=== PATIENT | male | born 1960 | race African-American/Black ===

== ENCOUNTER 2017-08-27 14:05 | Inpatient (IN) ==
[2017-08-27] MEDS ORDERED: GLUCAGON 1 MG VIAL IM PRN (21:07)
[2017-08-27] MEDS ORDERED: POTASSIUM CHLORIDE 20 MEQ TABLET PO PRN (21:07)
[2017-08-27] MEDS ORDERED: ONDANSETRON 4 MG/2 ML VIAL IV PRN (21:07)
[2017-08-27] MEDS ORDERED: MAGNESIUM SULF RIDER 2 GM in PREMIX 1 EACH IV PRN (21:07)
[2017-08-27] MEDS ORDERED: MAGNESIUM SULF RIDER 4 GM in PREMIX 1 EACH IV PRN (21:07)
[2017-08-27] MEDS: cefTRIAXone 1,000 MG in SYRINGE 1 EACH IV SCH (22:00)
[2017-08-27] MEDS: CARVEDILOL 3.125 MG TABLET PO SCH (22:00)
[2017-08-27] MEDS: INSULIN GLARGINE 100 UNIT/ML SUBCUT SCH (22:07)
[2017-08-27 22:23] LABS: Eosinophils # 0.1 10*3/uL (0.0-0.87); Eosinophils % 0.5 % (0.00-10.9); Hematocrit 25.1 VOL% (42.0-52.0); Hemoglobin 8.3 GM/DL (14.0-18.0); Lymphocytes % 9.5 % (21.2-54.2); Mean Corpuscular HGB Conc 33.1 GM/DL (32-36); Mean Corpuscular Hemoglobin 31 PG (27-34); Mean Corpuscular Volume 92.3 FL (87-102); Mean Platelet Volume 10.8 FL (9.6-12.0); Monocytes % 9.6 % (1.7-12.7); Neutrophils # 8.2 10*3/uL (1.4-7.4); Neutrophils % 79.4 % (38.7-73.9); Platelet Count 119 T/CUMM (130-400); Red Blood Count 2.72 MC/CUMM (3.8-5.5); Red Cell Distribution Width 15.4 % (9.3-17.3); White Blood Count 10.3 T/CUMM (4-12)
[2017-08-27 22:50] LABS: Albumin 3.4 G/DL (3.4-5.0); Bilirubin,Total 0.6 MG/DL (0.2-1.0); Calcium 8.2 MG/DL (8.5-10.1); Osmolality,Calculated 275.9 MOS/KG (273-304); Potassium 4.7 MMOL/L (3.5-5.1); Thyroid Stimulating Hormone 0.552 uIU/ml (0.358-3.74)
[2017-08-27 23:21] LABS: Folate 6.9 NG/ML (5.4-24.0); Vitamin B12 953 PG/ML (211-911)
[2017-08-27 23:29] LABS: Sedimentation Rate-Westergren 119 MM/HR (0-20)
[2017-08-28 00:11] LABS: Apearance,Urine CLOUDY (Clear); Bilirubin,Urine Negative (Negative); Blood, Urine Large mg/dL (Negative); Glucose,Urine (UA) Negative (Negative); Ketones,Urine Negative (Negative); Nitrite,Urine Negative (Negative); Protein,Urine 100 MG/DL; RBC,Urine 866 /HPF (0-4); Urine Color Amber (Yellow); Urine Specific Gravity 1.012 (1.001-1.035); Urine Urobilinogen < 2.0 EU/DL (0.2-1.0); WBC,Urine 58 /HPF (0-6)
[2017-08-28] MEDS: ENOXAPARIN 30 MG/0.3 ML SYRINGE SUBCUT SCH ×2 (00:24→22:28)
[2017-08-28 07:09] LABS: Risk Ratio 1.53; VLDL CHOLESTEROL 8.6 MG/DL
[2017-08-28] MEDS: INSULIN REGULAR 100 UNIT/ML SUBCUT SCH ×4 (08:33→22:26)
[2017-08-28] MEDS: PANTOPRAZOLE 40 MG TABLET PO SCH (08:36)
[2017-08-28] MEDS: FUROSEMIDE 40 MG/4 ML VIAL IV SCH ×2 (08:36→15:01)
[2017-08-28] MEDS: CARVEDILOL 3.125 MG TABLET PO SCH (08:37)
[2017-08-28] MEDS: ASPIRIN CHEW 81 MG TABLET PO SCH (08:37)
[2017-08-28] MEDS: ISOSORBIDE DINITRATE 20 MG TABLET PO SCH ×3 (08:37→22:26)
[2017-08-28] MEDS: metOLazone 2.5 MG TABLET PO SCH (08:37)
[2017-08-28] MEDS ORDERED: hydrALAZINE 25 MG TABLET PO SCH (09:00)
[2017-08-28 10:52] LABS: Basophils % 0.1 % (0.0-0.8); Eosinophils % 0.2 % (0.00-10.9); Hematocrit 24.6 VOL% (42.0-52.0); Hemoglobin 8.5 GM/DL (14.0-18.0); Immature Granulocytes % 0.5 %; Immature Granulocytes Absolute 0.06 #; Lymphocytes # 0.8 10*3/uL (1.4-4.0); Lymphocytes % 6.9 % (21.2-54.2); Mean Corpuscular HGB Conc 34.6 GM/DL (32-36); Mean Corpuscular Hemoglobin 31 PG (27-34); Mean Corpuscular Volume 88.8 FL (87-102); Mean Platelet Volume 10.8 FL (9.6-12.0); Monocytes % 8.3 % (1.7-12.7); Neutrophils # 9.7 10*3/uL (1.4-7.4); Platelet Count 127 T/CUMM (130-400); Red Blood Count 2.77 MC/CUMM (3.8-5.5); Red Cell Distribution Width 15.3 % (9.3-17.3); White Blood Count 11.5 T/CUMM (4-12)
[2017-08-28] MEDS: OSELTAMIVIR 30 MG CAPSULE PO SCH (10:59)
[2017-08-28] MEDS ORDERED: CARVEDILOL 3.125 MG TABLET PO ONE (11:15)
[2017-08-28 11:39] LABS: Calcium 8.2 MG/DL (8.5-10.1); Osmolality,Calculated 278.9 MOS/KG (273-304)
[2017-08-28 12:04] LABS: Bilirubin,Direct 0.29 MG/DL (0.0-0.20); Bilirubin,Indirect 0.3 MG/DL (0.0-1.0); Bilirubin,Total 0.6 MG/DL (0.2-1.0); Total Protein 8.3 G/DL (6.4-8.3)
[2017-08-28 12:06] LABS: Hemoglobin A1 (Alkaline) 68.5 % (96.5-98.5)
[2017-08-28 12:09] LABS: Hemoglobin S (Alkaline) 28.5 %
[2017-08-28 17:40] LABS: Apearance,Urine CLOUDY (Clear); Bilirubin,Urine Negative (Negative); Blood, Urine Large mg/dL (Negative); Glucose,Urine (UA) Negative (Negative); Ketones,Urine Negative (Negative); Mucus,Urine Occasional /LPF (Occasional); Nitrite,Urine Negative (Negative); Protein,Urine 100 MG/DL; RBC,Urine 594 /HPF (0-4); Urine Color Yellow (Yellow); Urine Specific Gravity 1.005 (1.001-1.035); Urine Urobilinogen < 2.0 EU/DL (0.2-1.0); WBC,Urine 39 /HPF (0-6)
[2017-08-28 22:11] LABS: Microalbum/Creat Ratio Random 493.7 RATIO (0-30)
[2017-08-28] MEDS: CARVEDILOL 6.25 MG TABLET PO SCH (22:26)
[2017-08-28] MEDS: INSULIN GLARGINE 100 UNIT/ML SUBCUT SCH (22:27)
[2017-08-28] MEDS: PRAVASTATIN 20 MG TABLET PO SCH (22:27)
[2017-08-28] MEDS: cefTRIAXone 1,000 MG in SYRINGE 1 EACH IV SCH (22:30)
[2017-08-29 06:35] LABS: Basophils % 0.2 % (0.0-0.8); Eosinophils # 0.1 10*3/uL (0.0-0.87); Eosinophils % 1.1 % (0.00-10.9); Hematocrit 24.5 VOL% (42.0-52.0); Hemoglobin 8.5 GM/DL (14.0-18.0); Immature Granulocytes % 0.6 %; Immature Granulocytes Absolute 0.06 #; Lymphocytes # 1.6 10*3/uL (1.4-4.0); Lymphocytes % 14.4 % (21.2-54.2); Mean Corpuscular HGB Conc 34.7 GM/DL (32-36); Mean Corpuscular Hemoglobin 31 PG (27-34); Mean Corpuscular Volume 87.8 FL (87-102); Mean Platelet Volume 10.9 FL (9.6-12.0); Monocytes # 1.2 10*3/uL (0.11-0.8); Monocytes % 10.7 % (1.7-12.7); Neutrophils # 7.8 10*3/uL (1.4-7.4); Platelet Count 132 T/CUMM (130-400); Red Blood Count 2.79 MC/CUMM (3.8-5.5); Red Cell Distribution Width 15.2 % (9.3-17.3); White Blood Count 10.7 T/CUMM (4-12)
[2017-08-29 07:05] LABS: Calcium 8.3 MG/DL (8.5-10.1); Osmolality,Calculated 284.7 MOS/KG (273-304); Potassium 4.6 MMOL/L (3.5-5.1)
[2017-08-29] MEDS: INSULIN REGULAR 100 UNIT/ML SUBCUT SCH ×4 (07:45→21:26)
[2017-08-29] MEDS: ASPIRIN CHEW 81 MG TABLET PO SCH (09:08)
[2017-08-29] MEDS: PANTOPRAZOLE 40 MG TABLET PO SCH (09:08)
[2017-08-29] MEDS: FUROSEMIDE 40 MG/4 ML VIAL IV SCH ×2 (09:08→15:39)
[2017-08-29] MEDS: OSELTAMIVIR 30 MG CAPSULE PO SCH (09:08)
[2017-08-29] MEDS: metOLazone 2.5 MG TABLET PO SCH (09:08)
[2017-08-29] MEDS: ISOSORBIDE DINITRATE 20 MG TABLET PO SCH ×3 (09:08→21:25)
[2017-08-29] MEDS: CARVEDILOL 6.25 MG TABLET PO SCH ×2 (09:08→21:26)
[2017-08-29] MEDS ORDERED: hydrALAZINE 25 MG TABLET ONE (20:44)
[2017-08-29] MEDS: PRAVASTATIN 20 MG TABLET PO SCH (21:26)
[2017-08-29] MEDS: INSULIN GLARGINE 100 UNIT/ML SUBCUT SCH (21:26)
[2017-08-29] MEDS: cefTRIAXone 1,000 MG in SYRINGE 1 EACH IV SCH (21:27)
[2017-08-29] MEDS: ENOXAPARIN 30 MG/0.3 ML SYRINGE SUBCUT SCH (21:32)
[2017-08-30 05:31] LABS: Basophils % 0.2 % (0.0-0.8); Eosinophils # 0.2 10*3/uL (0.0-0.87); Eosinophils % 2.5 % (0.00-10.9); Hematocrit 24.5 VOL% (42.0-52.0); Hemoglobin 8.1 GM/DL (14.0-18.0); Immature Granulocytes % 0.4 %; Immature Granulocytes Absolute 0.03 #; Lymphocytes # 1.8 10*3/uL (1.4-4.0); Lymphocytes % 21.4 % (21.2-54.2); Mean Corpuscular HGB Conc 33.1 GM/DL (32-36); Mean Corpuscular Hemoglobin 30 PG (27-34); Mean Corpuscular Volume 89.1 FL (87-102); Mean Platelet Volume 11.2 FL (9.6-12.0); Monocytes # 1.1 10*3/uL (0.11-0.8); Monocytes % 12.6 % (1.7-12.7); Neutrophils # 5.3 10*3/uL (1.4-7.4); Neutrophils % 62.9 % (38.7-73.9); Platelet Count 138 T/CUMM (130-400); Red Blood Count 2.75 MC/CUMM (3.8-5.5); Red Cell Distribution Width 15.2 % (9.3-17.3); White Blood Count 8.5 T/CUMM (4-12)
[2017-08-30 05:56] LABS: Calcium 7.8 MG/DL (8.5-10.1); Osmolality,Calculated 290.5 MOS/KG (273-304); Potassium 4.4 MMOL/L (3.5-5.1)
[2017-08-30] MEDS: metOLazone 2.5 MG TABLET PO SCH ×2 (08:13→08:55)
[2017-08-30] MEDS: PANTOPRAZOLE 40 MG TABLET PO SCH (08:14)
[2017-08-30] MEDS: CARVEDILOL 6.25 MG TABLET PO SCH ×2 (08:14→20:08)
[2017-08-30] MEDS: ASPIRIN CHEW 81 MG TABLET PO SCH (08:14)
[2017-08-30] MEDS: ISOSORBIDE DINITRATE 20 MG TABLET PO SCH ×3 (08:14→20:08)
[2017-08-30] MEDS: FUROSEMIDE 40 MG/4 ML VIAL IV SCH (08:14)
[2017-08-30] MEDS: OSELTAMIVIR 30 MG CAPSULE PO SCH (08:14)
[2017-08-30] MEDS: INSULIN REGULAR 100 UNIT/ML SUBCUT SCH ×4 (08:15→20:14)
[2017-08-30] MEDS: FUROSEMIDE 100 MG/10 ML VIAL IV SCH ×3 (08:55→20:01)
[2017-08-30] MEDS: cefTRIAXone 1,000 MG in SYRINGE 1 EACH IV SCH (17:05)
[2017-08-30] MEDS: AZITHROMYCIN INJ 250 MG in SODIUM CHLORIDE 0.9% 250 ML IV SCH (19:56)
[2017-08-30] MEDS: ENOXAPARIN 30 MG/0.3 ML SYRINGE SUBCUT SCH (20:07)
[2017-08-30] MEDS: PRAVASTATIN 20 MG TABLET PO SCH (20:08)
[2017-08-30] MEDS: INSULIN GLARGINE 100 UNIT/ML SUBCUT SCH (20:08)
[2017-08-31] MEDS: DEXTROSE 50% 25 GM/50 ML VIAL IV PRN (05:19)
[2017-08-31] MEDS: cefTRIAXone 1,000 MG in SYRINGE 1 EACH IV SCH ×2 (05:34→20:34)
[2017-08-31 06:59] LABS: Eosinophils # 0.1 10*3/uL (0.0-0.87); Hematocrit 25.7 VOL% (42.0-52.0); Hemoglobin 8.8 GM/DL (14.0-18.0); Immature Granulocytes % 0.3 %; Immature Granulocytes Absolute 0.02 #; Lymphocytes # 0.9 10*3/uL (1.4-4.0); Mean Corpuscular HGB Conc 34.2 GM/DL (32-36); Mean Corpuscular Hemoglobin 30 PG (27-34); Mean Corpuscular Volume 88.3 FL (87-102); Monocytes # 0.3 10*3/uL (0.11-0.8); Monocytes % 5.6 % (1.7-12.7); Neutrophils # 4.8 10*3/uL (1.4-7.4); Neutrophils % 79.1 % (38.7-73.9); Platelet Count 133 T/CUMM (130-400); Red Blood Count 2.91 MC/CUMM (3.8-5.5); Red Cell Distribution Width 15.7 % (9.3-17.3); White Blood Count 6.1 T/CUMM (4-12)
[2017-08-31 07:24] LABS: Osmolality,Calculated 293.2 MOS/KG (273-304); Potassium 4.2 MMOL/L (3.5-5.1)
[2017-08-31] MEDS ORDERED: REGADENOSON 0.4 MG/5 ML SYRINGE IV ONE (08:07)
[2017-08-31] MEDS: INSULIN REGULAR 100 UNIT/ML SUBCUT SCH ×4 (09:55→20:42)
[2017-08-31] MEDS: FUROSEMIDE 100 MG/10 ML VIAL IV SCH ×3 (10:18→21:12)
[2017-08-31] MEDS: ISOSORBIDE DINITRATE 20 MG TABLET PO SCH ×3 (10:18→20:33)
[2017-08-31] MEDS: metOLazone 2.5 MG TABLET PO SCH (11:55)
[2017-08-31] MEDS: PANTOPRAZOLE 40 MG TABLET PO SCH (11:55)
[2017-08-31] MEDS: OSELTAMIVIR 30 MG CAPSULE PO SCH (11:55)
[2017-08-31] MEDS: CARVEDILOL 6.25 MG TABLET PO SCH ×2 (11:55→20:33)
[2017-08-31] MEDS: ASPIRIN CHEW 81 MG TABLET PO SCH (11:55)
[2017-08-31] MEDS: ENOXAPARIN 30 MG/0.3 ML SYRINGE SUBCUT SCH (20:33)
[2017-08-31] MEDS: PRAVASTATIN 20 MG TABLET PO SCH (20:34)
[2017-08-31] MEDS: INSULIN GLARGINE 100 UNIT/ML SUBCUT SCH (20:42)
[2017-08-31] MEDS: AZITHROMYCIN INJ 250 MG in SODIUM CHLORIDE 0.9% 250 ML IV SCH (20:53)
[2017-09-01 02:47] LABS: Basophils % 0.1 % (0.0-0.8); Eosinophils # 0.1 10*3/uL (0.0-0.87); Eosinophils % 1.7 % (0.00-10.9); Hematocrit 24.4 VOL% (42.0-52.0); Hemoglobin 8.2 GM/DL (14.0-18.0); Immature Granulocytes % 0.6 %; Immature Granulocytes Absolute 0.04 #; Lymphocytes # 1.4 10*3/uL (1.4-4.0); Lymphocytes % 20.4 % (21.2-54.2); Mean Corpuscular HGB Conc 33.6 GM/DL (32-36); Mean Corpuscular Hemoglobin 30 PG (27-34); Mean Corpuscular Volume 89.4 FL (87-102); Mean Platelet Volume 10.8 FL (9.6-12.0); Monocytes # 0.9 10*3/uL (0.11-0.8); Monocytes % 12.7 % (1.7-12.7); Neutrophils # 4.5 10*3/uL (1.4-7.4); Neutrophils % 64.5 % (38.7-73.9); Platelet Count 139 T/CUMM (130-400); Red Blood Count 2.73 MC/CUMM (3.8-5.5); Red Cell Distribution Width 15.2 % (9.3-17.3)
[2017-09-01 03:16] LABS: Calcium 7.7 MG/DL (8.5-10.1); Osmolality,Calculated 290.4 MOS/KG (273-304); Potassium 4.3 MMOL/L (3.5-5.1)
[2017-09-01] MEDS: DEXTROSE 50% 25 GM/50 ML VIAL IV PRN ×2 (04:24→07:44)
[2017-09-01] MEDS: INSULIN REGULAR 100 UNIT/ML SUBCUT SCH ×4 (07:45→21:06)
[2017-09-01] MEDS ORDERED: FUROSEMIDE 40 MG/4 ML VIAL ONE (07:58)
[2017-09-01] MEDS: cefTRIAXone 1,000 MG in SYRINGE 1 EACH IV SCH ×2 (08:20→21:12)
[2017-09-01] MEDS: FUROSEMIDE 100 MG/10 ML VIAL IV SCH ×3 (08:20→21:15)
[2017-09-01] MEDS: ISOSORBIDE DINITRATE 20 MG TABLET PO SCH (08:21)
[2017-09-01] MEDS: ASPIRIN CHEW 81 MG TABLET PO SCH (08:21)
[2017-09-01] MEDS: PANTOPRAZOLE 40 MG TABLET PO SCH (08:21)
[2017-09-01] MEDS: CARVEDILOL 6.25 MG TABLET PO SCH ×2 (08:21→21:17)
[2017-09-01] MEDS: OSELTAMIVIR 30 MG CAPSULE PO SCH (08:21)
[2017-09-01] MEDS: metOLazone 2.5 MG TABLET PO SCH (08:21)
[2017-09-01 11:21] LABS: % Iron Saturation 12.1 % (18-50)
[2017-09-01] MEDS: INSULIN GLARGINE 100 UNIT/ML SUBCUT SCH (21:11)
[2017-09-01] MEDS: ENOXAPARIN 30 MG/0.3 ML SYRINGE SUBCUT SCH (21:16)
[2017-09-01] MEDS: PRAVASTATIN 20 MG TABLET PO SCH (21:17)
[2017-09-01] MEDS: AZITHROMYCIN INJ 250 MG in SODIUM CHLORIDE 0.9% 250 ML IV SCH (21:18)
[2017-09-02 05:31] LABS: Osmolality,Calculated 291.5 MOS/KG (273-304); Potassium 4.4 MMOL/L (3.5-5.1)
[2017-09-02] MEDS: INSULIN REGULAR 100 UNIT/ML SUBCUT SCH ×4 (10:01→21:56)
[2017-09-02] MEDS: FUROSEMIDE 100 MG/10 ML VIAL IV SCH ×3 (10:03→21:55)
[2017-09-02] MEDS: ASPIRIN CHEW 81 MG TABLET PO SCH (10:03)
[2017-09-02] MEDS: CARVEDILOL 6.25 MG TABLET PO SCH ×2 (10:03→21:54)
[2017-09-02] MEDS: OSELTAMIVIR 30 MG CAPSULE PO SCH (10:04)
[2017-09-02] MEDS: PANTOPRAZOLE 40 MG TABLET PO SCH (10:04)
[2017-09-02] MEDS: metOLazone 2.5 MG TABLET PO SCH (10:05)
[2017-09-02] MEDS: cefTRIAXone 1,000 MG in SYRINGE 1 EACH IV SCH ×2 (10:06→21:55)
[2017-09-02] MEDS: IRON SUCROSE 200 MG in SODIUM CHLORIDE 0.9% 100 ML IV SCH (15:58)
[2017-09-02] MEDS: ENOXAPARIN 30 MG/0.3 ML SYRINGE SUBCUT SCH (21:54)
[2017-09-02] MEDS: PRAVASTATIN 20 MG TABLET PO SCH (21:54)
[2017-09-02] MEDS: AZITHROMYCIN INJ 250 MG in SODIUM CHLORIDE 0.9% 250 ML IV SCH (21:55)
[2017-09-02] MEDS: INSULIN GLARGINE 100 UNIT/ML SUBCUT SCH (21:56)
[2017-09-03 06:06] LABS: Basophils % 0.3 % (0.0-0.8); Eosinophils # 0.3 10*3/uL (0.0-0.87); Eosinophils % 4.2 % (0.00-10.9); Hematocrit 24.8 VOL% (42.0-52.0); Hemoglobin 8.6 GM/DL (14.0-18.0); Immature Granulocytes % 0.5 %; Immature Granulocytes Absolute 0.04 #; Lymphocytes # 1.8 10*3/uL (1.4-4.0); Lymphocytes % 24.5 % (21.2-54.2); Mean Corpuscular HGB Conc 34.7 GM/DL (32-36); Mean Corpuscular Hemoglobin 30 PG (27-34); Mean Corpuscular Volume 86.7 FL (87-102); Mean Platelet Volume 11.1 FL (9.6-12.0); Monocytes # 1.1 10*3/uL (0.11-0.8); Monocytes % 14.6 % (1.7-12.7); Neutrophils # 4.1 10*3/uL (1.4-7.4); Neutrophils % 55.9 % (38.7-73.9); Platelet Count 143 T/CUMM (130-400); Red Blood Count 2.86 MC/CUMM (3.8-5.5); Red Cell Distribution Width 15.7 % (9.3-17.3); White Blood Count 7.4 T/CUMM (4-12)
[2017-09-03 06:30] LABS: Calcium 7.8 MG/DL (8.5-10.1); Osmolality,Calculated 292.5 MOS/KG (273-304); Osmolality,Calculated 293.4 MOS/KG (273-304); Potassium 4.3 MMOL/L (3.5-5.1); Potassium 4.4 MMOL/L (3.5-5.1)
[2017-09-03] MEDS: INSULIN REGULAR 100 UNIT/ML SUBCUT SCH ×4 (08:17→20:40)
[2017-09-03] MEDS: ASPIRIN CHEW 81 MG TABLET PO SCH (10:29)
[2017-09-03] MEDS: PANTOPRAZOLE 40 MG TABLET PO SCH (10:30)
[2017-09-03] MEDS: cefTRIAXone 1,000 MG in SYRINGE 1 EACH IV SCH ×2 (10:30→20:45)
[2017-09-03] MEDS: FUROSEMIDE 100 MG/10 ML VIAL IV SCH ×3 (10:30→20:42)
[2017-09-03] MEDS: CARVEDILOL 6.25 MG TABLET PO SCH ×2 (10:30→20:38)
[2017-09-03] MEDS: metOLazone 2.5 MG TABLET PO SCH (10:30)
[2017-09-03] MEDS: IRON SUCROSE 200 MG in SODIUM CHLORIDE 0.9% 100 ML IV SCH (12:49)
[2017-09-03] MEDS: ENOXAPARIN 30 MG/0.3 ML SYRINGE SUBCUT SCH ×2 (20:38→20:48)
[2017-09-03] MEDS: PRAVASTATIN 20 MG TABLET PO SCH (20:38)
[2017-09-03] MEDS: INSULIN GLARGINE 100 UNIT/ML SUBCUT SCH (20:39)
[2017-09-03] MEDS: AZITHROMYCIN INJ 250 MG in SODIUM CHLORIDE 0.9% 250 ML IV SCH (20:43)
[2017-09-04] MEDS ORDERED: ceFAZolin 1,000 MG in SYRINGE 1 EACH IV ONE (07:00)
[2017-09-04] MEDS: INSULIN REGULAR 100 UNIT/ML SUBCUT SCH ×4 (08:04→21:07)
[2017-09-04] MEDS: CARVEDILOL 6.25 MG TABLET PO SCH ×2 (09:30→21:05)
[2017-09-04] MEDS: cefTRIAXone 1,000 MG in SYRINGE 1 EACH IV SCH ×2 (09:31→20:31)
[2017-09-04] MEDS: FUROSEMIDE 100 MG/10 ML VIAL IV SCH ×3 (09:32→20:35)
[2017-09-04] MEDS ORDERED: HEPARIN 10,000 UNIT/10 ML VIAL IV PRN (10:48)
[2017-09-04] MEDS: DEXTROSE 50% 25 GM/50 ML VIAL IV PRN (11:31)
[2017-09-04] MEDS: IRON SUCROSE 200 MG in SODIUM CHLORIDE 0.9% 100 ML IV SCH (11:33)
[2017-09-04] MEDS ORDERED: HEPARIN 5,000 UNIT/1 ML VIAL ONE (11:34)
[2017-09-04 12:27] LABS: Hepatitis A Ab IgM Quant 0.18 Index; Hepatitis A Ab IgM Result Negative (Negative); Hepatitis B Core IgM Quant 0.17 Index; Hepatitis B Core IgM Result Negative (Negative); Hepatitis B Surface Ag Quant < 0.10 Index; Hepatitis B Surface Ag Result Negative (Negative); Hepatitis C Virus Ab Quant > 11.00 Index; Hepatitis C Virus Ab Result Positive (Negative)
[2017-09-04] MEDS: SODIUM CHLORIDE 0.9% 250 ML IV SCH ×2 (13:25→17:47)
[2017-09-04] MEDS ORDERED: MIDAZOLAM 2 MG/2 ML VIAL ONE (13:46)
[2017-09-04] MEDS ORDERED: fentaNYL 100 MCG/2 ML VIAL ONE (13:47)
[2017-09-04] MEDS: metOLazone 2.5 MG TABLET PO SCH (17:41)
[2017-09-04] MEDS: PANTOPRAZOLE 40 MG TABLET PO SCH (17:41)
[2017-09-04] MEDS: CLOPIDOGREL 75 MG TABLET PO SCH (17:42)
[2017-09-04] MEDS: ASPIRIN CHEW 81 MG TABLET PO SCH (17:42)
[2017-09-04] MEDS: PRAVASTATIN 20 MG TABLET PO SCH (21:05)
[2017-09-04] MEDS: INSULIN GLARGINE 100 UNIT/ML SUBCUT SCH (21:05)
[2017-09-04] MEDS: ENOXAPARIN 30 MG/0.3 ML SYRINGE SUBCUT SCH (21:08)
[2017-09-04] MEDS: AZITHROMYCIN INJ 250 MG in SODIUM CHLORIDE 0.9% 250 ML IV SCH (21:08)
[2017-09-05 05:30] LABS: Basophils % 0.1 % (0.0-0.8); Eosinophils # 0.2 10*3/uL (0.0-0.87); Eosinophils % 2.4 % (0.00-10.9); Hematocrit 23.8 VOL% (42.0-52.0); Hemoglobin 7.9 GM/DL (14.0-18.0); Immature Granulocytes % 0.6 %; Immature Granulocytes Absolute 0.05 #; Lymphocytes % 12.8 % (21.2-54.2); Mean Corpuscular HGB Conc 33.2 GM/DL (32-36); Mean Corpuscular Hemoglobin 30 PG (27-34); Mean Corpuscular Volume 89.1 FL (87-102); Mean Platelet Volume 10.9 FL (9.6-12.0); Monocytes % 12.4 % (1.7-12.7); Neutrophils # 5.6 10*3/uL (1.4-7.4); Neutrophils % 71.7 % (38.7-73.9); Platelet Count 122 T/CUMM (130-400); Red Blood Count 2.67 MC/CUMM (3.8-5.5); Red Cell Distribution Width 15.4 % (9.3-17.3); White Blood Count 7.8 T/CUMM (4-12)
[2017-09-05 06:08] LABS: Calcium 7.9 MG/DL (8.5-10.1); Osmolality,Calculated 288.2 MOS/KG (273-304)
[2017-09-05] MEDS ORDERED: EPOETIN ALFA 10,000 UNIT/1 ML VIAL IV PRN (06:53)
[2017-09-05] MEDS: SODIUM CHLORIDE 0.9% 250 ML IV SCH (06:54)
[2017-09-05] MEDS: INSULIN REGULAR 100 UNIT/ML SUBCUT SCH ×4 (07:35→22:43)
[2017-09-05] MEDS: ASPIRIN CHEW 81 MG TABLET PO SCH (08:15)
[2017-09-05] MEDS: ACETAMINOPHEN 325 MG TABLET PO PRN (08:15)
[2017-09-05] MEDS: CARVEDILOL 6.25 MG TABLET PO SCH ×2 (08:15→22:43)
[2017-09-05] MEDS: CLOPIDOGREL 75 MG TABLET PO SCH (08:15)
[2017-09-05] MEDS: PANTOPRAZOLE 40 MG TABLET PO SCH (08:15)
[2017-09-05] MEDS: cefTRIAXone 1,000 MG in SYRINGE 1 EACH IV SCH ×2 (08:17→22:30)
[2017-09-05] MEDS ORDERED: FERRIC GLUCONATE COMPLEX 125 MG in SODIUM CHLORIDE 0.9% 100 ML IV SCH (09:00)
[2017-09-05] MEDS: IRON SUCROSE 200 MG in SODIUM CHLORIDE 0.9% 100 ML IV SCH (09:29)
[2017-09-05] MEDS: AZITHROMYCIN INJ 250 MG in SODIUM CHLORIDE 0.9% 250 ML IV SCH (22:35)
[2017-09-05] MEDS: PRAVASTATIN 20 MG TABLET PO SCH (22:43)
[2017-09-05] MEDS: ENOXAPARIN 30 MG/0.3 ML SYRINGE SUBCUT SCH (23:15)
[2017-09-06] MEDS: INSULIN REGULAR 100 UNIT/ML SUBCUT SCH ×4 (09:23→20:40)
[2017-09-06] MEDS: CARVEDILOL 6.25 MG TABLET PO SCH ×2 (09:24→20:30)
[2017-09-06] MEDS: ASPIRIN CHEW 81 MG TABLET PO SCH (09:24)
[2017-09-06] MEDS: PANTOPRAZOLE 40 MG TABLET PO SCH (09:24)
[2017-09-06] MEDS: CLOPIDOGREL 75 MG TABLET PO SCH (09:24)
[2017-09-06] MEDS: cefTRIAXone 1,000 MG in SYRINGE 1 EACH IV SCH (13:54)
[2017-09-06] MEDS: IRON SUCROSE 200 MG in SODIUM CHLORIDE 0.9% 100 ML IV SCH (13:56)
[2017-09-06] MEDS: AZITHROMYCIN INJ 250 MG in SODIUM CHLORIDE 0.9% 250 ML IV SCH (20:29)
[2017-09-06] MEDS: PRAVASTATIN 20 MG TABLET PO SCH (20:30)
[2017-09-06] MEDS: ENOXAPARIN 30 MG/0.3 ML SYRINGE SUBCUT SCH (20:30)
[2017-09-06] MEDS: ACETAMINOPHEN 325 MG TABLET PO PRN (20:37)
[2017-09-06] MEDS ORDERED: OXYMETAZOLINE 0.05% NASAL SPRAY 15 ML BOTTLE BOTH NARES PRN (21:06)
[2017-09-07] MEDS: cefTRIAXone 1,000 MG in SYRINGE 1 EACH IV SCH ×2 (02:38→15:38)
[2017-09-07] MEDS: INSULIN REGULAR 100 UNIT/ML SUBCUT SCH ×4 (08:34→22:25)
[2017-09-07] MEDS: CLOPIDOGREL 75 MG TABLET PO SCH (09:48)
[2017-09-07] MEDS: CARVEDILOL 6.25 MG TABLET PO SCH ×2 (09:48→22:25)
[2017-09-07] MEDS: PANTOPRAZOLE 40 MG TABLET PO SCH (09:48)
[2017-09-07] MEDS: ASPIRIN CHEW 81 MG TABLET PO SCH (09:48)
[2017-09-07] MEDS: AZITHROMYCIN INJ 250 MG in SODIUM CHLORIDE 0.9% 250 ML IV SCH (22:24)
[2017-09-07] MEDS: ENOXAPARIN 30 MG/0.3 ML SYRINGE SUBCUT SCH (22:25)
[2017-09-07] MEDS: PRAVASTATIN 20 MG TABLET PO SCH (22:25)
[2017-09-08] MEDS: cefTRIAXone 1,000 MG in SYRINGE 1 EACH IV SCH ×2 (02:06→13:31)
[2017-09-08 06:11] LABS: Basophils % 0.4 % (0.0-0.8); Eosinophils # 0.2 10*3/uL (0.0-0.87); Eosinophils % 2.8 % (0.00-10.9); Hematocrit 23.3 VOL% (42.0-52.0); Hemoglobin 7.8 GM/DL (14.0-18.0); Immature Granulocytes % 0.8 %; Immature Granulocytes Absolute 0.06 #; Lymphocytes # 1.8 10*3/uL (1.4-4.0); Lymphocytes % 24.2 % (21.2-54.2); Mean Corpuscular HGB Conc 33.5 GM/DL (32-36); Mean Corpuscular Hemoglobin 29 PG (27-34); Mean Corpuscular Volume 87.6 FL (87-102); Mean Platelet Volume 11.3 FL (9.6-12.0); Monocytes # 1.2 10*3/uL (0.11-0.8); Monocytes % 16.1 % (1.7-12.7); Neutrophils # 4.2 10*3/uL (1.4-7.4); Neutrophils % 55.7 % (38.7-73.9); Platelet Count 118 T/CUMM (130-400); Red Blood Count 2.66 MC/CUMM (3.8-5.5); Red Cell Distribution Width 15.9 % (9.3-17.3); White Blood Count 7.6 T/CUMM (4-12)
[2017-09-08 06:37] LABS: Calcium 8.5 MG/DL (8.5-10.1); Osmolality,Calculated 270.7 MOS/KG (273-304)
[2017-09-08 07:39] LABS: Hypochromasia 2+; Lymphocytes 16 % (20-55); Microcytosis Slight; Platelet Estimate Decreased; Segmented Neutrophils 74 % (50-85); Target Cells Slight; Total Cells Counted 100
[2017-09-08] MEDS: INSULIN REGULAR 100 UNIT/ML SUBCUT SCH ×4 (09:59→21:46)
[2017-09-08] MEDS: CARVEDILOL 6.25 MG TABLET PO SCH ×2 (10:22→21:45)
[2017-09-08] MEDS: ASPIRIN CHEW 81 MG TABLET PO SCH (10:23)
[2017-09-08] MEDS: PANTOPRAZOLE 40 MG TABLET PO SCH (10:23)
[2017-09-08] MEDS: CLOPIDOGREL 75 MG TABLET PO SCH (10:23)
[2017-09-08] MEDS: PRAVASTATIN 20 MG TABLET PO SCH (21:45)
[2017-09-08] MEDS: AZITHROMYCIN INJ 250 MG in SODIUM CHLORIDE 0.9% 250 ML IV SCH (21:45)
[2017-09-08] MEDS: ENOXAPARIN 30 MG/0.3 ML SYRINGE SUBCUT SCH (21:45)
[2017-09-09] MEDS: cefTRIAXone 1,000 MG in SYRINGE 1 EACH IV SCH ×2 (01:59→14:31)
[2017-09-09 06:00] LABS: Basophils % 0.3 % (0.0-0.8); Eosinophils # 0.2 10*3/uL (0.0-0.87); Eosinophils % 2.5 % (0.00-10.9); Hematocrit 22.4 VOL% (42.0-52.0); Hemoglobin 7.5 GM/DL (14.0-18.0); Immature Granulocytes % 0.5 %; Immature Granulocytes Absolute 0.04 #; Lymphocytes # 1.9 10*3/uL (1.4-4.0); Lymphocytes % 25.4 % (21.2-54.2); Mean Corpuscular HGB Conc 33.5 GM/DL (32-36); Mean Corpuscular Hemoglobin 30 PG (27-34); Mean Corpuscular Volume 88.2 FL (87-102); Mean Platelet Volume 11.5 FL (9.6-12.0); Monocytes % 13.7 % (1.7-12.7); Neutrophils # 4.2 10*3/uL (1.4-7.4); Neutrophils % 57.6 % (38.7-73.9); Platelet Count 117 T/CUMM (130-400); Red Blood Count 2.54 MC/CUMM (3.8-5.5); Red Cell Distribution Width 15.9 % (9.3-17.3); White Blood Count 7.3 T/CUMM (4-12)
[2017-09-09 06:28] LABS: Calcium 8.5 MG/DL (8.5-10.1); Osmolality,Calculated 273.1 MOS/KG (273-304); Potassium 3.8 MMOL/L (3.5-5.1)
[2017-09-09] MEDS: INSULIN REGULAR 100 UNIT/ML SUBCUT SCH ×4 (08:42→21:53)
[2017-09-09] MEDS: CARVEDILOL 6.25 MG TABLET PO SCH ×2 (08:52→21:52)
[2017-09-09] MEDS: CLOPIDOGREL 75 MG TABLET PO SCH (08:52)
[2017-09-09] MEDS: PANTOPRAZOLE 40 MG TABLET PO SCH (08:52)
[2017-09-09] MEDS: ASPIRIN CHEW 81 MG TABLET PO SCH (08:52)
[2017-09-09] MEDS ORDERED: SODIUM CHLORIDE 0.9% 1,000 ML IV PRN (14:50)
[2017-09-09] MEDS: PRAVASTATIN 20 MG TABLET PO SCH (21:52)
[2017-09-09] MEDS: AZITHROMYCIN INJ 250 MG in SODIUM CHLORIDE 0.9% 250 ML IV SCH (21:52)
[2017-09-09] MEDS: ENOXAPARIN 30 MG/0.3 ML SYRINGE SUBCUT SCH (21:53)
[2017-09-10] MEDS: cefTRIAXone 1,000 MG in SYRINGE 1 EACH IV SCH ×2 (01:54→15:43)
[2017-09-10 05:00] LABS: Basophils % 0.2 % (0.0-0.8); Eosinophils # 0.2 10*3/uL (0.0-0.87); Eosinophils % 2.2 % (0.00-10.9); Hematocrit 21.6 VOL% (42.0-52.0); Hemoglobin 7.4 GM/DL (14.0-18.0); Immature Granulocytes % 0.5 %; Immature Granulocytes Absolute 0.04 #; Lymphocytes # 1.9 10*3/uL (1.4-4.0); Mean Corpuscular HGB Conc 34.3 GM/DL (32-36); Mean Corpuscular Hemoglobin 30 PG (27-34); Mean Corpuscular Volume 88.5 FL (87-102); Mean Platelet Volume 10.9 FL (9.6-12.0); Monocytes # 1.1 10*3/uL (0.11-0.8); Monocytes % 13.6 % (1.7-12.7); Neutrophils # 4.8 10*3/uL (1.4-7.4); Neutrophils % 59.5 % (38.7-73.9); Platelet Count 116 T/CUMM (130-400); Red Blood Count 2.44 MC/CUMM (3.8-5.5); Red Cell Distribution Width 15.9 % (9.3-17.3)
[2017-09-10 05:27] LABS: Calcium 8.5 MG/DL (8.5-10.1); Osmolality,Calculated 278.8 MOS/KG (273-304); Potassium 3.8 MMOL/L (3.5-5.1)
[2017-09-10] MEDS: INSULIN REGULAR 100 UNIT/ML SUBCUT SCH ×4 (08:06→21:51)
[2017-09-10] MEDS: CARVEDILOL 6.25 MG TABLET PO SCH ×2 (09:43→21:46)
[2017-09-10] MEDS: ASPIRIN CHEW 81 MG TABLET PO SCH (09:43)
[2017-09-10] MEDS: CLOPIDOGREL 75 MG TABLET PO SCH (09:44)
[2017-09-10] MEDS: PANTOPRAZOLE 40 MG TABLET PO SCH (09:44)
[2017-09-10] MEDS ORDERED: SODIUM CHLORIDE 0.9% 1,000 ML IV PRN (10:55)
[2017-09-10] MEDS ORDERED: IRON SUCROSE 100 MG/5 ML VIAL IV SCH (11:00)
[2017-09-10] MEDS: PRAVASTATIN 20 MG TABLET PO SCH (21:46)
[2017-09-10] MEDS: ENOXAPARIN 30 MG/0.3 ML SYRINGE SUBCUT SCH (21:46)
[2017-09-10] MEDS: AZITHROMYCIN INJ 250 MG in SODIUM CHLORIDE 0.9% 250 ML IV SCH (22:02)
[2017-09-11] MEDS: cefTRIAXone 1,000 MG in SYRINGE 1 EACH IV SCH (02:04)
[2017-09-11 05:10] LABS: Basophils % 0.2 % (0.0-0.8); Eosinophils # 0.2 10*3/uL (0.0-0.87); Eosinophils % 2.5 % (0.00-10.9); Hemoglobin 7.2 GM/DL (14.0-18.0); Immature Granulocytes % 0.6 %; Immature Granulocytes Absolute 0.05 #; Lymphocytes # 2.1 10*3/uL (1.4-4.0); Lymphocytes % 25.1 % (21.2-54.2); Mean Corpuscular HGB Conc 32.7 GM/DL (32-36); Mean Corpuscular Hemoglobin 30 PG (27-34); Mean Corpuscular Volume 90.2 FL (87-102); Monocytes % 12.5 % (1.7-12.7); Neutrophils # 4.9 10*3/uL (1.4-7.4); Neutrophils % 59.1 % (38.7-73.9); Platelet Count 112 T/CUMM (130-400); Red Blood Count 2.44 MC/CUMM (3.8-5.5); Red Cell Distribution Width 16.3 % (9.3-17.3); White Blood Count 8.3 T/CUMM (4-12)
[2017-09-11 05:35] LABS: Calcium 8.5 MG/DL (8.5-10.1); Osmolality,Calculated 284.7 MOS/KG (273-304)
[2017-09-11] MEDS: INSULIN REGULAR 100 UNIT/ML SUBCUT SCH ×4 (07:23→20:24)
[2017-09-11] MEDS: CARVEDILOL 6.25 MG TABLET PO SCH ×2 (07:28→20:31)
[2017-09-11] MEDS: CLOPIDOGREL 75 MG TABLET PO SCH (07:28)
[2017-09-11] MEDS: PANTOPRAZOLE 40 MG TABLET PO SCH (07:28)
[2017-09-11] MEDS: ASPIRIN CHEW 81 MG TABLET PO SCH (07:28)
[2017-09-11] MEDS ORDERED: HEPARIN 10,000 UNIT/10 ML VIAL IV SCH (07:30)
[2017-09-11] MEDS: ENOXAPARIN 30 MG/0.3 ML SYRINGE SUBCUT SCH (20:31)
[2017-09-11] MEDS: PRAVASTATIN 20 MG TABLET PO SCH (20:31)
[2017-09-12 05:22] LABS: Basophils % 0.5 % (0.0-0.8); Eosinophils # 0.2 10*3/uL (0.0-0.87); Hematocrit 28.4 VOL% (42.0-52.0); Hemoglobin 9.5 GM/DL (14.0-18.0); Immature Granulocytes % 0.6 %; Immature Granulocytes Absolute 0.05 #; Lymphocytes % 24.2 % (21.2-54.2); Mean Corpuscular HGB Conc 33.5 GM/DL (32-36); Mean Corpuscular Hemoglobin 30 PG (27-34); Mean Corpuscular Volume 89.9 FL (87-102); Mean Platelet Volume 11.5 FL (9.6-12.0); Monocytes # 1.2 10*3/uL (0.11-0.8); Monocytes % 15.2 % (1.7-12.7); Neutrophils # 4.6 10*3/uL (1.4-7.4); Neutrophils % 56.5 % (38.7-73.9); Platelet Count 100 T/CUMM (130-400); Red Blood Count 3.16 MC/CUMM (3.8-5.5); Red Cell Distribution Width 16.4 % (9.3-17.3); White Blood Count 8.1 T/CUMM (4-12)
[2017-09-12 05:50] LABS: Calcium 8.5 MG/DL (8.5-10.1); Osmolality,Calculated 279.8 MOS/KG (273-304)
[2017-09-12] MEDS: CLOPIDOGREL 75 MG TABLET PO SCH (08:39)
[2017-09-12] MEDS: CARVEDILOL 6.25 MG TABLET PO SCH (08:39)
[2017-09-12] MEDS: PANTOPRAZOLE 40 MG TABLET PO SCH (08:39)
[2017-09-12] MEDS: ASPIRIN CHEW 81 MG TABLET PO SCH (08:39)
[2017-09-12] MEDS: INSULIN REGULAR 100 UNIT/ML SUBCUT SCH ×2 (08:40→14:02)
[2017-09-12 11:58] VITALS: BP 137/65
== END 2017-09-12 13:45 | disposition home or self-care (01) | DRG 194 ==
LOC: N.2E 19:00 → SUATTDRO 19:00
PROVIDERS: ADMIT Internal Medicine; ATTEND Hospitalist